=== PATIENT | male | born 1940 | race Caucasian/White ===

== ENCOUNTER → 2018-04-12 | Outpatient (CLI) | payer MEDICARE, SELFPAY ==
[~2018-04-12] MED LIST: LISI5 PO; OXYACE5T PO; Percocet 5-3251 EACH PO
[2018-04-12 11:36] LABS: BASOPHILS ABSOLUTE AUTO 0.05 K/mm3 (0.00-0.23); BASOPHILS PERCENT AUTO 1 % (0-2); EOSINOPHILS ABSOLUTE AUTO 0.23 K/mm3 (0.00-0.68); EOSINOPHILS PERCENT AUTO 3 % (0-6); Hematocrit 39.8 % (37.0-53.0); Hemoglobin 12.8 g/dL (13.5-17.5); IMMATURE GRAN ABSOLUTE AUTO 0.04 K/mm3 (0.00-0.10); IMMATURE GRAN PERCENT AUTO 1 % (0-1); LYMPHOCYTES ABSOLUTE AUTO 1.06 K/mm3 (0.84-5.20); LYMPHOCYTES PERCENT AUTO 14 % (21-46); MONOCYTES ABSOLUTE AUTO 0.44 K/mm3 (0.16-1.47); MONOCYTES PERCENT AUTO 6 % (4-13); Mean Corpuscular HGB 27.4 pg (26.0-34.0); Mean Corpuscular HGB Conc 32.2 g/dL (31.5-36.5); Mean Corpuscular Volume 85 fL (80-100); Mean Platelet Volume 10.4 fL (9.1-12.4); NEUTROPHILS ABSOLUTE AUTO 5.99 K/mm3 (1.96-9.15); NEUTROPHILS PERCENT AUTO 77 % (41-73); Platelet Count 208 K/mm3 (150-400); RDW Coefficient Variation 15.5 % (11.7-14.2); RDW Standard Deviation 47.2 fL (35.1-46.3); Red Blood Cell Count 4.68 M/mm3 (4.30-5.90); White Blood Cell Count 7.81 K/mm3 (4.00-11.30)
[2018-04-12 11:39] LABS: Anion Gap 10 mmol/L (6-16); Blood Urea Nitrogen 22 mg/dL (8-24); Bun/Creatinine Ratio 20.6 (12.0-20.0); CO2, Blood 27 mmol/L (21-32); Calcium, Blood 9.1 mg/dL (8.5-10.1); Chloride, Blood 103 mmol/L (98-108); Creatinine, Blood 1.07 mg/dL (0.60-1.20); Glomerular Filtration Rate >60 (60-); Glucose, Blood 104 mg/dL (70-99); Sodium, Blood 140 mmol/L (136-145)
== END | disposition home or self-care (01) ==
LOC: LAB EV 11:22 → LAB SHORT 11:22
PROVIDERS: Physician Assistant Surgical
DX: R06.02 Shortness of breath (principal)
CPT/HCPCS: 80048; 83880; 85025

== ENCOUNTER 2018-09-10 14:37 | Emergency (ER) | payer MEDICARE, SELFPAY ==
[~2018-09-10] VITALS: Ht 182.9 cm; Wt 106.6 kg
[2018-09-10 15:13] LABS: BASOPHILS ABSOLUTE AUTO 0.04 K/mm3 (0.00-0.23); BASOPHILS PERCENT AUTO 0 % (0-2); EOSINOPHILS ABSOLUTE AUTO 0.13 K/mm3 (0.00-0.68); EOSINOPHILS PERCENT AUTO 1 % (0-6); Hematocrit 37.7 % (37.0-53.0); Hemoglobin 11.7 g/dL (13.5-17.5); IMMATURE GRAN ABSOLUTE AUTO 0.03 K/mm3 (0.00-0.10); IMMATURE GRAN PERCENT AUTO 0 % (0-1); LYMPHOCYTES ABSOLUTE AUTO 0.78 K/mm3 (0.84-5.20); LYMPHOCYTES PERCENT AUTO 8 % (21-46); MONOCYTES ABSOLUTE AUTO 0.48 K/mm3 (0.16-1.47); MONOCYTES PERCENT AUTO 5 % (4-13); Mean Corpuscular HGB 27.6 pg (26.0-34.0); Mean Corpuscular Volume 89 fL (80-100); Mean Platelet Volume 9.7 fL (9.1-12.4); NEUTROPHILS ABSOLUTE AUTO 8.27 K/mm3 (1.96-9.15); NEUTROPHILS PERCENT AUTO 85 % (41-73); Platelet Count 251 K/mm3 (150-400); RDW Standard Deviation 45.7 fL (35.1-46.3); Red Blood Cell Count 4.24 M/mm3 (4.30-5.90); White Blood Cell Count 9.73 K/mm3 (4.00-11.30)
[2018-09-10 15:30] LABS: Albumin, Blood 3.3 g/dL (3.4-5.0); Albumin/Globulin Ratio 0.8 (0.8-1.8); Bilirubin, Total 0.7 mg/dL (0.1-1.0); Bun/Creatinine Ratio 13.4 (12.0-20.0); Calcium, Blood 8.7 mg/dL (8.5-10.1); Creatinine, Blood 1.27 mg/dL (0.60-1.20); Globulin, Blood 4.1 g/dL (2.2-4.0); Total Protein, Blood 7.4 g/dL (6.4-8.2)
[2018-09-10] MEDS ORDERED: TORSE20 PO (16:15)
[2018-09-10] MEDS ORDERED: ROPI1 PO (16:15)
[2018-09-10] MEDS ORDERED: NITR.4SL SL (16:15)
[2018-09-10] MEDS ORDERED: ELIQUIS5 MG PO (16:15)
[2018-09-10] MEDS ORDERED: POTASSIUM CHLO20 MEQ PO (16:15)
[2018-09-10] MEDS ORDERED: METO25ER PO (16:15)
[2018-09-10] MEDS ORDERED: Inderal40 MG (16:16)
[2018-09-10] MEDS ORDERED: SPIR25 PO (16:16)
[2018-09-10] MEDS ORDERED: Metformin HCl1000 MG PO (16:16)
[2018-09-10] MEDS ORDERED: Lovastatin20 MG PO (16:16)
[2018-09-10] MEDS ORDERED: FURO20 PO (16:16)
[2018-09-10] MEDS ORDERED: Prinivil10 MG PO (16:16)
[2018-09-10] MEDS ORDERED: LIRA0.6P (16:16)
[2018-09-10] MEDS ORDERED: Prednisone20 MG PO (16:56)
[2018-09-10] MEDS ORDERED: Augmentin 875-1 EACH PO (16:56)
[2018-09-10] MEDS ORDERED: ALBU90OI INH (16:56)
== END 2018-09-10 19:15 | disposition home or self-care (01) ==
LOC: ER 14:37
PROVIDERS: Physician Assistant
DX: J44.1 Chronic obstructive pulmonary disease with (acute) exacerbation (principal); L03.115 Cellulitis of right lower limb; I10 Essential (primary) hypertension; I48.91 Unspecified atrial fibrillation; Z87.891 Personal history of nicotine dependence; Z79.52 Long term (current) use of systemic steroids; Z79.899 Other long term (current) drug therapy
CPT/HCPCS: 36415; 71046; 73620; 80053; 83880; 84484; 85025; 93005; 93010; 93971; 94640; 99285-25

== ENCOUNTER 2018-10-30 12:35 | Emergency (ER) | payer MEDICARE, SELFPAY ==
[~2018-10-30] VITALS: Ht 182.9 cm; Wt 117.0 kg
[~2018-10-30 12:35] MED LIST changes: +ALBU90OI INH; +Augmentin 875-1 EACH PO; +ELIQUIS5 MG PO; +FURO20 PO; +Inderal40 MG; +LIRA0.6P; +Lovastatin20 MG PO; +METO25ER PO; +Metformin HCl1000 MG PO; +NITR.4SL SL; +POTASSIUM CHLO20 MEQ PO; +Prednisone20 MG PO; +Prinivil10 MG PO; +ROPI1 PO; +SPIR25 PO; +TORSE20 PO
[2018-10-30 13:46] LABS: BASOPHILS ABSOLUTE AUTO 0.06 K/mm3 (0.00-0.23); BASOPHILS PERCENT AUTO 1 % (0-2); EOSINOPHILS ABSOLUTE AUTO 0.08 K/mm3 (0.00-0.68); EOSINOPHILS PERCENT AUTO 1 % (0-6); Hematocrit 37.9 % (37.0-53.0); Hemoglobin 11.7 g/dL (13.5-17.5); IMMATURE GRAN ABSOLUTE AUTO 0.06 K/mm3 (0.00-0.10); IMMATURE GRAN PERCENT AUTO 1 % (0-1); LYMPHOCYTES ABSOLUTE AUTO 1.15 K/mm3 (0.84-5.20); LYMPHOCYTES PERCENT AUTO 11 % (21-46); MONOCYTES ABSOLUTE AUTO 0.82 K/mm3 (0.16-1.47); MONOCYTES PERCENT AUTO 8 % (4-13); Mean Corpuscular HGB 25.8 pg (26.0-34.0); Mean Corpuscular HGB Conc 30.9 g/dL (31.5-36.5); Mean Corpuscular Volume 84 fL (80-100); Mean Platelet Volume 9.5 fL (9.1-12.4); NEUTROPHILS ABSOLUTE AUTO 8.44 K/mm3 (1.96-9.15); NEUTROPHILS PERCENT AUTO 80 % (41-73); Platelet Count 251 K/mm3 (150-400); RDW Coefficient Variation 14.8 % (11.7-14.2); RDW Standard Deviation 45.2 fL (35.1-46.3); Red Blood Cell Count 4.53 M/mm3 (4.30-5.90); White Blood Cell Count 10.61 K/mm3 (4.00-11.30)
[2018-10-30 14:10] LABS: Alanine Aminotransfer (ALT/SGP 17 U/L (12-78); Albumin, Blood 3.5 g/dL (3.4-5.0); Albumin/Globulin Ratio 0.9 (0.8-1.8); Alk Phos 88 U/L (50-136); Anion Gap 8 mmol/L (6-16); Aspartate Aminotrans (AST/SGOT 20 U/L (12-37); Bilirubin, Total 0.5 mg/dL (0.1-1.0); Blood Urea Nitrogen 18 mg/dL (8-24); Bun/Creatinine Ratio 15.4 (12.0-20.0); CO2, Blood 26 mmol/L (21-32); Calcium, Blood 8.9 mg/dL (8.5-10.1); Chloride, Blood 100 mmol/L (98-108); Creatinine, Blood 1.17 mg/dL (0.60-1.20); Globulin, Blood 4.1 g/dL (2.2-4.0); Glomerular Filtration Rate >60 (60-); Glucose, Blood 109 mg/dL (70-99); Potassium, Blood 4.5 mmol/L (3.5-5.5); Sodium, Blood 134 mmol/L (136-145); Total Protein, Blood 7.6 g/dL (6.4-8.2)
[2018-10-30] MEDS ORDERED: Bactrim Ds Tab1 EACH PO (14:57)
[2018-10-30] MEDS ORDERED: Norco 5-325 Ta1 EACH PO (14:57)
[2018-10-30] MEDS ORDERED: CEPH500 PO (14:57)
== END 2018-10-30 15:05 | disposition home or self-care (01) ==
LOC: ER 12:35
PROVIDERS: Physician Assistant
DX: L03.116 Cellulitis of left lower limb (principal); E11.9 Type 2 diabetes mellitus without complications; I48.91 Unspecified atrial fibrillation; I10 Essential (primary) hypertension; Z87.891 Personal history of nicotine dependence
CPT/HCPCS: 36415; 80053; 85025; 99283

== ENCOUNTER 2019-06-27 15:51 | Emergency (ER) | payer MEDICARE, OTHER ==
[~2019-06-27] VITALS: Ht 182.9 cm; Wt 103.4 kg
[~2019-06-27 15:51] MED LIST changes: +Bactrim Ds Tab1 EACH PO; +CEPH500 PO; +Norco 5-325 Ta1 EACH PO
[2019-06-27] MEDS ORDERED: ALBU3IS INH (19:45)
[2019-06-27] MEDS ORDERED: PRED20 PO (19:45)
== END 2019-06-27 20:12 | disposition home or self-care (01) ==
LOC: ER 15:51
DX: J44.1 Chronic obstructive pulmonary disease with (acute) exacerbation (principal); I35.0 Nonrheumatic aortic (valve) stenosis; E11.9 Type 2 diabetes mellitus without complications; I48.91 Unspecified atrial fibrillation; E78.5 Hyperlipidemia, unspecified; I10 Essential (primary) hypertension; Z87.891 Personal history of nicotine dependence; Z79.899 Other long term (current) drug therapy; Z79.01 Long term (current) use of anticoagulants; Z79.84 Long term (current) use of oral hypoglycemic drugs; Z79.52 Long term (current) use of systemic steroids; R06.00 Dyspnea, unspecified; R53.81 Other malaise
CPT/HCPCS: 71046; 80053; 82550; 83880; 84439; 84443; 84484; 85025; 93005; 93010; 94640; 96374; 99284-25; J2930

== ENCOUNTER 2020-03-20 08:24 | Observation (INO) | payer MEDICARE ==
[~2020-03-20] VITALS: Ht 180.3 cm; Wt 96.8 kg
[~2020-03-20 08:24] MED LIST changes: +ALBU3IS INH; +FERSU300 PO; -Lovastatin20 MG PO; -METO25ER PO; +PRED20 PO; -Prinivil10 MG PO; -SPIR25 PO
[2020-03-20 08:48] LABS: BASOPHILS ABSOLUTE AUTO 0.05 K/mm3 (0.00-0.23); BASOPHILS PERCENT AUTO 1 % (0-2); EOSINOPHILS PERCENT AUTO 3 % (0-6); Hematocrit 26.6 % (37.0-53.0); Hemoglobin 8.1 g/dL (13.5-17.5); IMMATURE GRAN ABSOLUTE AUTO 0.03 K/mm3 (0.00-0.10); IMMATURE GRAN PERCENT AUTO 1 % (0-1); LYMPHOCYTES ABSOLUTE AUTO 1.28 K/mm3 (0.84-5.20); LYMPHOCYTES PERCENT AUTO 20 % (21-46); MONOCYTES ABSOLUTE AUTO 0.52 K/mm3 (0.16-1.47); MONOCYTES PERCENT AUTO 8 % (4-13); Mean Corpuscular HGB 26.9 pg (26.0-34.0); Mean Corpuscular HGB Conc 30.5 g/dL (31.5-36.5); Mean Corpuscular Volume 88 fL (80-100); Mean Platelet Volume 9.7 fL (9.1-12.4); NEUTROPHILS ABSOLUTE AUTO 4.29 K/mm3 (1.96-9.15); NEUTROPHILS PERCENT AUTO 67 % (41-73); Platelet Count 211 K/mm3 (150-400); RDW Coefficient Variation 19.2 % (11.7-14.2); RDW Standard Deviation 61.3 fL (35.1-46.3); Red Blood Cell Count 3.01 M/mm3 (4.30-5.90); White Blood Cell Count 6.37 K/mm3 (4.00-11.30)
[2020-03-20 09:05] LABS: Albumin, Blood 3.2 g/dL (3.4-5.0); Albumin/Globulin Ratio 0.9 (0.8-1.8); Bilirubin, Total 0.4 mg/dL (0.1-1.0); Bun/Creatinine Ratio 18.5 (12.0-20.0); Calcium, Blood 8.7 mg/dL (8.5-10.1); Creatinine, Blood 1.24 mg/dL (0.60-1.20); Globulin, Blood 3.4 g/dL (2.2-4.0); Potassium, Blood 4.4 mmol/L (3.5-5.5); Total Protein, Blood 6.6 g/dL (6.4-8.2)
[2020-03-20 09:13] LABS: International Normalized Ratio 1.07; Prothrombin Time Results 11.4 Sec (9.7-11.5)
[2020-03-20] MEDS ORDERED: TORSE20 PO (12:47)
[2020-03-20] MEDS ORDERED: TIOT18 INH (12:47)
[2020-03-20] MEDS ORDERED: LISI20 PO (12:48)
[2020-03-20] MEDS ORDERED: VICTOZA 3-0.6 MG/0.2 SQ (12:50)
[2020-03-20] MEDS ORDERED: METFORMIN HCL1000 M2 PO (12:50)
[2020-03-20] MEDS ORDERED: BUPROPION XL150 M1 PO (12:51)
[2020-03-20] MEDS ORDERED: Lovastatin20 MG PO (12:51)
[2020-03-20] MEDS ORDERED: Aspir 8181 MG PO (12:52)
[2020-03-20] MEDS ORDERED: METO25ER PO (13:39)
[2020-03-20] MEDS ORDERED: Klor-Con 1010 MEQ PO (13:45)
[2020-03-20] MEDS ORDERED: SPIR25 PO (13:49)
[2020-03-20] MEDS ORDERED: TRAZ50 PO (13:53)
[2020-03-20] MEDS ORDERED: DOCU100 PO (13:54)
[2020-03-20] MEDS ORDERED: OXYC5 PO (13:55)
[2020-03-20] MEDS ORDERED: MORP20L PO (13:57)
[2020-03-20] MEDS ORDERED: MAGNESIUM OXID400 M3 PO (14:06)
[2020-03-20] MEDS ORDERED: ALPR.25 PO (14:07)
--- NOTE | 2020-03-20 18:46 | NUR ---
PATIENT IS ALERT AND ORIENTED AND COOPERATIVE WITH CARE. NO BOWEL MOVEMENTS SINCE HE'S BEEN ON THIS FLOOR. NO COMPLAINTS OF DIZZINESS. PATIENT WENT TO NUCLEAR MEDICINE FOR THE RED TAG TEST. HE HAS A UROSTOMY IN PLACE. HE IS ON COMFORT CARE. WILL CONTINUE TO MONITOR
[2020-03-20 18:48] LABS: Source, Urine Catheter
[2020-03-20 18:53] LABS: Bilirubin, Urine Neg (Neg); Blood, Urine Neg (Neg); Glucose Qualitative, Urine Neg (Neg); Ketones, Urine Neg (Neg); Leukocyte Esterase, Urine 3+ (Neg); Nitrite, Urine Neg (Neg); Protein, Urine 1+ (Neg); Specific Gravity, Urine 1.015 (1.003-1.022); Urobilinogen, Urine 1+ (Normal)
[2020-03-20 19:07] LABS: Appearance, Urine Clear (Clear); Color, Urine Yellow (P-Yellow)
[2020-03-20 19:09] LABS: Bacteria Few /hpf; Red Blood Cells, Urine 0-2 /hpf (0-2); Squamous Epithelial Cells Mod /hpf (Few); Triple Phosphate Crystals Few /hpf; White Blood Cells, Urine 25-50 /hpf (0-5)
--- NOTE | 2020-03-20 23:15 | NUR ---
PATIENT LAYING IN BED SLEEPING
--- NOTE | 2020-03-21 00:56 | NUR ---
PATIENT GIVEN A SNACK, HE IS CURRENTLY SITTING UP ON THE SIDE OF HIS BED EATING IT.
--- NOTE | 2020-03-21 06:07 | NUR ---
PATIENT WATCHING TV IN HIS ROOM
--- NOTE | 2020-03-21 07:29 | NUR ---
SHIFT SUMMARY PATIENT ALERT AND ORIENTED. STATED THAT HIS APPETITE WAS COMING BACK AND HAD THREE BOWLS OF CEREAL. PATIENT RESTED IN BED AND WATCHED TV MOST OF THE NIGHT. IV PATENT AND FLUSHED. BED IN LOWEST POSITION WITH WHEELS LOCKED. CALL LIGHT WITHIN REACH. REPORT GIVEN TO RICHARD SYED.
--- NOTE | 2020-03-21 09:27 | NUR ---
NO COMPLAINTS AT THIS TIME. NO BM'S.
--- NOTE | 2020-03-21 10:49 | NUR ---
PATIENT IS ASLEEP IN HIS ROOM
--- NOTE | 2020-03-21 12:43 | NUR ---
PATIENT DOES NOT NEED REPOSITIONED HE IS INDEPENDENT IN HIS ROOM. HE SHOWERED TODAY ON HIS OWN.
[2020-03-21] MEDS ORDERED: CIPR500 PO (12:49)
== END 2020-03-21 13:07 | disposition hospice, home (50) ==
LOC: ER 08:24 → MEDS 08:25 → ER 12:29 → MEDS 14:24
PROVIDERS: Emergency Medicine; ADMIT Internal Medicine
DX: K92.1 Melena (principal); D50.0 Iron deficiency anemia secondary to blood loss (chronic); I48.20 Chronic atrial fibrillation, unspecified; I27.20 Pulmonary hypertension, unspecified; I10 Essential (primary) hypertension; E78.5 Hyperlipidemia, unspecified; I35.0 Nonrheumatic aortic (valve) stenosis; Z66 Do not resuscitate; Z79.899 Other long term (current) drug therapy; Z79.01 Long term (current) use of anticoagulants; Z95.1 Presence of aortocoronary bypass graft
CPT/HCPCS: 36415; 36430; 78278; 80053; 81001; 82947; 85025; 85610; 85730; 86850; 86900; 86901; 86923; 87077; 87086; 87186; 99284-25; A9560; G0378; J7030; P9016